=== PATIENT | male | born 2000 | race American Indian/Alaskan Native ===

== ENCOUNTER 2020-03-03 21:35 | Emergency (ER) | payer SELFPAY ==
[2020-03-03 21:45] VITALS: BP 134/86
== END 2020-03-03 22:45 | disposition left against medical advice (07) ==
LOC: ED 21:35
DX: R39.198 Other difficulties with micturition (principal); Z53.21 Procedure and treatment not carried out due to patient leaving prior to being seen by health care provider

== ENCOUNTER 2020-03-04 20:28 | Emergency (ER) | payer SELFPAY ==
[2020-03-04 20:38] VITALS: BP 138/74
[2020-03-05] MEDS ORDERED: ASPIRIN 325 MG TAB PO ONE (01:09)
--- NOTE | 2020-03-05 01:38 | XRay Report ---
CHEST 1 VIEW INDICATION / CLINICAL INFORMATION: chest pain. COMPARISON: None available. FINDINGS: SUPPORT DEVICES: None. HEART / MEDIASTINUM: No significant abnormality. LUNGS / PLEURA: No significant pulmonary or pleural abnormality. No pneumothorax. ADDITIONAL FINDINGS: No significant additional findings. IMPRESSION: 1. No acute findings. Signer Name: Per Upton MD Signed: 03/05/2020 1:34 AM Workstation Name: [id number]
[2020-03-05 01:47] LABS: Alanine Aminotransferase 9 units/L (7-56); Albumin 4.9 g/dL (3.9-5); BUN/Creatinine Ratio 6; Blood Urea Nitrogen 7 mg/dL (9-20); Calcium 9.6 mg/dL (8.4-10.2); Hemolysis Index 14
--- NOTE | 2020-03-05 01:52 | Emergency Department Report ---
ED General Adult HPI - General Chief complaint: Chest Pain Stated complaint: PAIN IN URINATION/CANT URINATE Source: patient Mode of arrival: Ambulatory Limitations: No Limitations - History of Present Illness Initial comments: Patient is a 19-year-old -[place] male with no past medical history presents to the ED with complaint of acute onset left-sided chest pain interm ittently for the last 1 week. Patient states that in the last 2 days the pain has worsened especially with any exertion or palpation of the left chest wall. Patient also complaints of urinary frequency and urgency for the last 1 week. Patient denies testicular pain, hematuria, dysuria, pelvic pain, traumatic injury, low back pain, dizziness, syncope, shortness of breath, fever, chills, cough, headache, abdominal pain, nausea and vomiting, diaphoresis, traumatic injury or heavy lifting. MD Complaint: left sided chest pain; urinary urgency, frequency -: Sudden, days(s) (2) Location: chest, genitals Radiation: non-radiation Severity scale (0 -10): 4 Quality: aching, dull Consistency: intermittent Improves with: none Worsens with: none Associated Symptoms: denies other symptoms, chest pain. denies: confusion, diaphoresis, fever/chills, headaches, loss of appetite, malaise, nausea/vomiting, rash, seizure, weakness, other Treatments Prior to Arrival: none - Related Data Previous Rx's Medication Instructions Recorded Last Taken Type Ciprofloxacin HCl [Ciprofloxacin 500 mg PO Q12HR #20 tab 03/05/20 Unknown Rx TAB] Cyclobenzaprine [Flexeril] 10 mg PO Q8H PRN #12 tablet 03/05/20 Unknown Rx Ibuprofen [Motrin] 600 mg PO Q8H PRN #20 tablet 03/05/20 Unknown Rx Allergies Allergy/AdvReac Type Severity Reaction Status Date / Time No Known Allergies Allergy Unverified 03/03/20 21:45 ED Review of Systems ROS: Stated complaint: PAIN IN URINATION/CANT URINATE Other details as noted in HPI Constitutional: denies: chills, fever Eyes: denies: eye pain, eye discharge, vision change ENT: denies: ear pain, throat pain Respiratory: denies: cough, shortness of breath, wheezing Cardiovascular: chest pain (left-sided). denies: palpitations Endocrine: no symptoms reported Gastrointestinal: denies: abdominal pain, nausea, diarrhea Genitourinary: urgency, frequency. denies: dysuria Musculoskeletal: denies: back pain, joint swelling, arthralgia Skin: denies: rash, lesions Neurological: denies: headache, weakness, paresthesias Psychiatric: denies: anxiety, depression Hematological/Lymphatic: denies: easy bleeding, easy bruising ED Past Medical Hx - Past Medical History Previous Medical History?: No - Surgical History Past Surgical History?: No - Social History Smoking Status: Current Every Day Smoker Substance Use Type: Alcohol - Medications Home Medications: Home Medications Medication Instructions Recorded Confirmed Last Taken Type Ciprofloxacin HCl [Ciprofloxacin 500 mg PO Q12HR #20 tab 03/05/20 Unknown Rx TAB] Cyclobenzaprine [Flexeril] 10 mg PO Q8H PRN #12 tablet 03/05/20 Unknown Rx Ibuprofen [Motrin] 600 mg PO Q8H PRN #20 tablet 03/05/20 Unknown Rx ED Physical Exam - General Limitations: No Limitations General appearance: alert, in no apparent distress - Head Head exam: Present: atraumatic, normocephalic, normal inspection - Eye Eye exam: Present: normal appearance, PERRL, EOMI Pupils: Present: normal accommodation - ENT ENT exam: Present: normal exam, normal orophraynx, mucous membranes moist, TM's normal bilaterally, normal external ear exam - Neck Neck exam: Present: normal inspection, full ROM. Absent: tenderness, lymphadenopathy - Respiratory Respiratory exam: Present: normal lung sounds bilaterally. Absent: respiratory distress, wheezes, rales, rhonchi, stridor, chest wall tenderness, accessory muscle use, decreased breath sounds, prolonged expiratory - Cardiovascular Cardiovascular Exam: Present: regular rate, normal rhythm, normal heart sounds. Absent: systolic murmur, diastolic murmur, rubs, gallop - GI/Abdominal GI/Abdominal exam: Present: soft, normal bowel sounds. Absent: tenderness, guarding, rebound, hyperactive bowel sounds, hypoactive bowel sounds, organomegaly - External exam: Present: other (Deferred, patient declined) - Extremities Exam Extremities exam: Present: normal inspection, full ROM, normal capillary refill - Back Exam Back exam: Present: normal inspection, full ROM. Absent: tenderness, CVA tenderness (R), CVA tenderness (L), muscle spasm, paraspinal tenderness, rash noted - Neurological Exam Neurological exam: Present: alert, oriented X3, CN II-XII intact, normal gait, reflexes normal - Psychiatric Psychiatric exam: Present: normal affect, normal mood - Skin Skin exam: Present: warm, dry, intact, normal color. Absent: rash ED Course Vital Signs 03/04/20 20:32 Temperature 98.0 F Pulse Rate 86 Respiratory 20 Rate Blood Pressure 138/74 O2 Sat by Pulse 97 Oximetry ED Medical Decision Making - Lab Data Result diagrams: 03/05/20 01:13 03/05/20 01:13 - EKG Data Rate: normal - EKG Data Interpretation: normal EKG 03/05/20 01:52 The EKG shows normal sinus rhythm with ventricular rate of 78 bpm, and nonspecific ST elevations, probably due to normal early repolarisation pattern - Radiology Data Radiology results: report reviewed, image reviewed Findings [facility] [address] [place] [address] XRay Report Signed Patient: NUVIA COLLINS MR#: [id number] : 2000 Acct:[id number] Age/Sex: 19 / M ADM Date: 03/04/20 Loc: ED Attending Dr: Ordering Physician: KIRILL YOUNG Date of Service: 03/05/20 Procedure(s): XR chest 1V ap Accession Number(s): [id number] cc: KIRILL YOUNG Fluoro Time In Minutes: CHEST 1 VIEW INDICATION / CLINICAL INFORMATION: chest pain. COMPARISON: None available. FINDINGS: SUPPORT DEVICES: None. HEART / MEDIASTINUM: No significant abnormality. LUNGS / PLEURA: No significant pulmonary or pleural abnormality. No pneumothorax. ADDITIONAL FINDINGS: No significant additional findings. IMPRESSION: 1. No acute findings. Signer Name: Per Upton MD Signed: 03/05/2020 1:34 AM Workstation Name: [id number] Transcribed By: JONNY Dictated By: Per Upton MD Electronically Authenticated By: Per Upton MD Signed Date/Time: 03/05/20133 DD/ 2 TD/TT: - Medical Decision Making This is a 19-year-old -[place] male with a history of tobacco abuse and alcohol abuse who presents to the ED with complaint of acute onset left-sided chest pain with urinary frequency and urgency for 1 week. In the ED, patient is alert and oriented x3 and is not in distress. EKG shows normal sinus rhythm with ventricular rate of 78 bpm, and nonspecific ST elevations, probably due to normal early repolarisation pattern. Chest x-ray shows no acute cardiopulmonary abnormalities or pneumonitis. Lab test results were reviewed and are all nonactionable except for urinalysis that showed significant urinary tract infection. Patient was treated for pain with aspirin and also given Rocephin and azithromycin for suspected gonorrhea and Chlamydia infections given the yadira ent's age and the fact that he recently had an unprotected sexual intercourse with a new sexual partner. Patient's heart score is 1 based on the patient heavy tobacco abuse. Patient symptoms are likely due to muscle strain or muscle spasm of the chest wall, and suspected gonorrhea and chlamydia infection or urinary tract infection. Patient was discharged home on medications and advised to follow-up with his primary care physician or [facility] in 5 to 7 days for reevaluation or return to the ED immediately if symptoms get worse. - Differential Diagnosis CAD; Pneumonia; Muscle strain; anxiety; STD; UTI Critical care attestation.: If time is entered above; I have spent that time in minutes in the direct care of this critically ill patient, excluding procedure time. ED Disposition Clinical Impression: Acute costochondritis, Acute urinary tract infection, Urethritis, nonspecific, STD (sexually transmitted disease) Disposition: DC-01 TO HOME OR SELFCARE Is pt being admited?: No Does the pt Need Aspirin: No Condition: Stable Instructions: Chest Pain (ED), Nonspecific Urethritis in Men (ED), Costochondritis (ED) Additional Instructions: Take medication with food, drink plenty of fluids and follow-up with your prima ry care physician or [facility] department in 5 to 7 days for reevaluation and other STD testing including HIV. Return to the ED immediately if symptoms get worse. Observe safe sexual practices. Prescriptions: Ciprofloxacin HCl [Ciprofloxacin TAB] 500 mg PO Q12HR #20 tab Cyclobenzaprine [Flexeril] 10 mg PO Q8H PRN #12 tablet PRN Reason: Muscle Spasm Ibuprofen [Motrin] 600 mg PO Q8H PRN #20 tablet PRN Reason: Pain Referrals: [facility]art [Outside] - 3-5 Days Forms: STI Treatment and Prevention Time of Disposition: 02:35 Print Language: ALBANIAN
[2020-03-05 01:57] LABS: Basophils # (Auto) 0.1 K/mm3 (0.0-0.1); Basophils % (Auto) 1.2 % (0.0-1.8); Eosinophils # (Auto) 0.1 K/mm3 (0.0-0.4); Eosinophils % (Auto) 2.4 % (0.0-4.3); Hematocrit 45.6 % (35.5-45.6); Hemoglobin 15.7 gm/dl (11.8-15.2); Lymphocytes # (Auto) 2.1 K/mm3 (1.2-5.4); Lymphocytes % (Auto) 42.9 % (13.4-35.0); Mean Corpuscular HGB Conc 35 % (32-34); Mean Corpuscular Volume 93 fl (84-94); Monocytes # (Auto) 0.6 K/mm3 (0.0-0.8); Platelet Count 285 K/mm3 (140-440); Red Blood Count 4.89 M/mm3 (3.65-5.03); Red Cell Distribution Width 13.3 % (13.2-15.2)
[2020-03-05 02:03] LABS: Bilirubin,Urine NEG (Negative); Blood,Urine NEG (Negative); Color,Urine Amber (Yellow); Mucus,Urine 2+ /HPF; Protein,Urine <15 mg/dL mg/dL (Negative)
[2020-03-05] MEDS ORDERED: LIDOCAINE-MPF (1%) 10 MG/1 ML VIAL 5 ML INFILTRATI ONE (02:26)
[2020-03-05] MEDS ORDERED: AZITHROMYCIN 250 MG TAB PO ONE (02:26)
== END 2020-03-05 03:00 | disposition home or self-care (01) ==
LOC: ED 20:28
DX: M94.0 Chondrocostal junction syndrome [Tietze] (principal); N34.1 Nonspecific urethritis; F17.200 Nicotine dependence, unspecified, uncomplicated; Z79.1 Long term (current) use of non-steroidal anti-inflammatories (NSAID); Z79.2 Long term (current) use of antibiotics
CPT/HCPCS: 36415; 71045; 80053; 81001; 84484; 85025; 87591; 93005; 93010; 96372; 99284; J0696